=== PATIENT | female | born 1980 | race Caucasian/White ===

== ENCOUNTER 2020-09-26 08:42 | Emergency (ER) | payer OTHER ==
[2020-09-26 08:48] VITALS: BP 122/64; PULSE 59; TEMP 97.8; BMI 27.0
[2020-09-26] MEDS ORDERED: MAG HYDROX/AL HYDROX/SIMETH 30 ML UNIT-DOSE CUP PO ONE (09:40)
[2020-09-26] MEDS ORDERED: ACETAMINOPHEN 500 MG TABLET (FP) PO ONE (09:40)
[2020-09-26] MEDS ORDERED: FAMOTIDINE 20 MG TABLET PO ONE (09:40)
[2020-09-26] MEDS ORDERED: ACETAMINOPHEN 325 MG TABLET (FP) ONE (09:58)
[2020-09-26] MEDS ORDERED: FAMOTIDINE 20 MG TABLET ONE (09:59)
[2020-09-26 10:51] LABS: BASO % 1.3 % (0-2.0); EOS % 8.7 % (0-4.5); HEMATOCRIT 30.7 % (32.4-45.2); LYMPH % 30.2 % (8-40); MCH 24.6 pg (25.7-33.7); MCHC 32.6 g/dl (32.0-36.0); MEAN CELL VOLUME 75.4 fl (80-96); MEAN PLT VOLUME 9.8 fl (7.5-11.1); MONO % 8.5 % (3.8-10.2); NEUT % 51.3 % (42.8-82.8); PLATELET COUNT 229 K/MM3 (134-434); RBC 4.07 M/mm3 (3.60-5.2); RDW 19.1 % (11.6-15.6); WHITE BLOOD COUNT 9.5 K/mm3 (4.0-10.0)
[2020-09-26 10:52] LABS: URINE APPEARANCE CLEAR; URINE BILIRUBIN NEGATIVE (NEGATIVE); URINE COLOR YELLOW; URINE GLUCOSE (UA) NEGATIVE (NEGATIVE); URINE KETONE NEGATIVE (NEGATIVE); URINE LEUK ESTERASE NEGATIVE (NEGATIVE); URINE NITRITE NEGATIVE (NEGATIVE); URINE PROTEIN NEGATIVE (NEGATIVE); URINE UROBILINOGEN 0.2 mg/dL (0.2-1.0)
[2020-09-26 10:55] LABS: HCG,QUALITATIVE URINE Negative
[2020-09-26 10:59] LABS: CALCIUM 9.1 mg/dL (8.5-10.1)
[2020-09-26 11:00] LABS: ALBUMIN 4.1 g/dl (3.4-5.0); BLOOD UREA NITROGEN 10.2 mg/dL (7-18)
[2020-09-26 11:02] LABS: CREATININE 0.5 mg/dL (0.55-1.3)
[2020-09-26 11:04] LABS: BILIRUBIN,TOTAL 0.3 mg/dL (0.2-1); TOT PROT 7.7 g/dl (6.4-8.2)
== END 2020-09-26 11:30 | disposition home or self-care (01) ==
LOC: JER 08:42
DX: R10.13 Epigastric pain (principal)
CPT/HCPCS: 36415; 80053; 81003; 83690; 84703; 85025; 87086; 99283-25

== ENCOUNTER 2021-01-28 10:01 | Emergency (ER) | payer OTHER ==
[2021-01-28 10:06] VITALS: BP 112/64; PULSE 58; TEMP 98.2; BMI 27.4
[2021-01-28] MEDS ORDERED: METHOCARBAMOL 500 MG TABLET PO ONE (10:34)
[2021-01-28] MEDS ORDERED: KETOROLAC TROMETHAMINE 30 MG/1 ML VIAL IM ONE (10:34)
[2021-01-28] MEDS ORDERED: METHOCARBAMOL 500 MG TABLET ONE (10:40)
[2021-01-28] MEDS ORDERED: KETOROLAC TROMETHAMINE 30 MG/1 ML VIAL ONE (10:40)
== END 2021-01-28 11:21 | disposition home or self-care (01) ==
LOC: JER 10:01
PROC: 3E023GC Introduction of Other Therapeutic Substance into Muscle, Percutaneous Approach (ICD-10-PCS; principal; 2021-01-28)
DX: S49.91XA Unspecified injury of right shoulder and upper arm, initial encounter (principal); V49.40XA Driver injured in collision with unspecified motor vehicles in traffic accident, initial encounter
CPT/HCPCS: 73060-TC-RT-FY; 99284-25

== ENCOUNTER 2021-02-20 12:00 | Emergency (ER) | payer OTHER ==
[2021-02-20 12:43] VITALS: BP 131/78; PULSE 60; TEMP 98.6; BMI 26.5
== END 2021-02-20 14:28 | disposition home or self-care (01) ==
LOC: JER 12:00 → JERFT 12:00
DX: J45.21 Mild intermittent asthma with (acute) exacerbation (principal)
CPT/HCPCS: 71046-TC-FY; 99283-25

== ENCOUNTER 2021-05-02 10:03 | Emergency (ER) | payer OTHER ==
[2021-05-02 10:11] VITALS: BP 112/69; PULSE 53; TEMP 97; BMI 26.5
[2021-05-02] MEDS ORDERED: KETOROLAC TROMETHAMINE 60 MG/2 ML VIAL IM ONE (10:34)
[2021-05-02] MEDS ORDERED: LIDOCAINE 5% TOPICAL PATCH TP ONE (10:34)
[2021-05-02] MEDS ORDERED: DEXAMETHASONE LIQUID 0.5 MG/5 ML PO ONE (10:34)
[2021-05-02] MEDS ORDERED: ACETAMINOPHEN 325 MG TABLET (FP) PO ONE (10:34)
[2021-05-02] MEDS ORDERED: diazePAM 5 MG TABLET PO ONE (10:35)
[2021-05-02] MEDS ORDERED: ACETAMINOPHEN 325 MG TABLET (FP) ONE (11:55)
[2021-05-02] MEDS ORDERED: KETOROLAC TROMETHAMINE 30 MG/1 ML VIAL ONE (11:56)
[2021-05-02] MEDS ORDERED: DEXAMETHASONE SOD PHOSPHATE 10 MG/1 ML VIAL ONE (11:56)
[2021-05-02] MEDS ORDERED: diazePAM 5 MG TABLET ONE (11:56)
[2021-05-02] MEDS ORDERED: LIDOCAINE 5% TOPICAL PATCH ONE (11:56)
[2021-05-02] MEDS ORDERED: LIDOCAINE PATCH REMOVAL MC ONE (22:00)
== END 2021-05-02 13:42 | disposition home or self-care (01) ==
LOC: JER 10:03
PROC: 3E023GC Introduction of Other Therapeutic Substance into Muscle, Percutaneous Approach (ICD-10-PCS; principal; 2021-05-02)
DX: M25.511 Pain in right shoulder (principal)
CPT/HCPCS: 99284-25

== ENCOUNTER 2024-04-19 23:42 | Inpatient (IN) | payer OTHER ==
[2024-04-20 00:22] LABS: BASO % 0.9 % (0-2.0); EOS % 3.3 % (0-4.5); HEMATOCRIT 30.3 % (32.4-45.2); HEMOGLOBIN 9.2 GM/dL (10.7-15.3); MCH 23.2 pg (25.7-33.7); MCHC 30.4 g/dl (32.0-36.0); MEAN CELL VOLUME 76.3 fl (80-96); MEAN PLT VOLUME 9.6 fl (7.5-11.1); MONO % 5.7 % (3.8-10.2); NEUT % 74.1 % (42.8-82.8); PLATELET COUNT 237 10^3/uL (134-434); RBC 3.96 M/mm3 (3.60-5.2); WHITE BLOOD COUNT 13.3 K/mm3 (4.0-10.0)
[2024-04-20 00:33] LABS: CHLORIDE 109 mmol/L (98-107); POTASSIUM 3.6 mmol/L (3.5-5.1); SODIUM 143 mmol/L (136-145)
[2024-04-20 00:35] LABS: CALCIUM 9.1 mg/dL (8.5-10.1)
[2024-04-20 00:37] LABS: ALBUMIN 3.8 g/dl (3.4-5.0); ANION GAP 8 mmol/L (4-13); BLOOD UREA NITROGEN 10.9 mg/dL (7-18); CO2 26 mmol/L (21-32); GLUCOSE,RANDOM 95 mg/dL (74-106)
[2024-04-20 00:40] LABS: CREATININE 0.7 mg/dL (0.55-1.3); SGOT/AST 14 U/L (15-37); SGPT/ALT 14 U/L (13-61)
[2024-04-20 00:41] LABS: BILIRUBIN,TOTAL 0.1 mg/dL (0.2-1); TOT PROT 7.1 g/dl (6.4-8.2)
[2024-04-20 00:42] LABS: ALK PHOS 66 U/L (45-117)
[2024-04-20 01:53] LABS: INR 1.11 (0.83-1.09); PROTHROMBIN TIME (PATIENT) 12.5 SEC (9.7-13.0)
[2024-04-20] MEDS ORDERED: ATROPINE SULFATE 1 MG/10 ML DISP.SYRIN ONE (06:48)
[2024-04-20] MEDS: ATROPINE SULFATE 1 MG/10 ML DISP.SYRIN IVPUSH ONE (06:54)
[2024-04-20 10:57] VITALS: BMI 25.9
[2024-04-20] MEDS: LACTATED RINGERS SOLUTION 1,000 ML/1,000 ML INFUS.BAG IV ONE (12:01)
[2024-04-20 19:06] LABS: COCAINE, UR NEGATIVE (NEGATIVE); METHADONE, UR NEGATIVE (NEGATIVE); OPIATES, URI NEGATIVE (NEGATIVE); PHENCYCLIDINE,URINE NEGATIVE (NEGATIVE); URINE AMPHETAMINES NEGATIVE (NEGATIVE); URINE BARBITURATES NEGATIVE (NEGATIVE); URINE BENZODIAZEPINES NEGATIVE (NEGATIVE)
[2024-04-21 07:00] LABS: BASO % 0.7 % (0-2.0); EOS % 5.9 % (0-4.5); HEMATOCRIT 28.7 % (32.4-45.2); MCH 23.6 pg (25.7-33.7); MCHC 31.2 g/dl (32.0-36.0); MEAN CELL VOLUME 75.6 fl (80-96); MEAN PLT VOLUME 9.3 fl (7.5-11.1); MONO % 8.6 % (3.8-10.2); NEUT % 37.8 % (42.8-82.8); PLATELET COUNT 234 10^3/uL (134-434); RBC 3.79 M/mm3 (3.60-5.2); RDW 18.9 % (11.6-15.6); WHITE BLOOD COUNT 6.7 K/mm3 (4.0-10.0)
[2024-04-21 07:21] LABS: POTASSIUM 3.9 mmol/L (3.5-5.1)
[2024-04-21 07:24] LABS: CALCIUM 8.5 mg/dL (8.5-10.1)
[2024-04-21 07:25] LABS: ALBUMIN 3.4 g/dl (3.4-5.0); BLOOD UREA NITROGEN 10.7 mg/dL (7-18)
[2024-04-21 07:28] LABS: CREATININE 0.6 mg/dL (0.55-1.3)
[2024-04-21 07:29] LABS: BILIRUBIN,TOTAL 0.2 mg/dL (0.2-1); TOT PROT 6.6 g/dl (6.4-8.2)
[2024-04-22 07:09] LABS: BASO % 0.8 % (0-2.0); EOS % 6.2 % (0-4.5); HEMATOCRIT 31.6 % (32.4-45.2); HEMOGLOBIN 9.8 GM/dL (10.7-15.3); LYMPH % 34.1 % (8-40); MCH 23.5 pg (25.7-33.7); MCHC 31.1 g/dl (32.0-36.0); MEAN CELL VOLUME 75.6 fl (80-96); MEAN PLT VOLUME 9.5 fl (7.5-11.1); MONO % 8.5 % (3.8-10.2); NEUT % 50.4 % (42.8-82.8); PLATELET COUNT 253 10^3/uL (134-434); RBC 4.19 M/mm3 (3.60-5.2); RDW 19.1 % (11.6-15.6); WHITE BLOOD COUNT 7.9 K/mm3 (4.0-10.0)
[2024-04-22 07:28] LABS: POTASSIUM 4.2 mmol/L (3.5-5.1)
[2024-04-22 07:34] LABS: ALBUMIN 3.8 g/dl (3.4-5.0); BLOOD UREA NITROGEN 11.5 mg/dL (7-18); CALCIUM 9.5 mg/dL (8.5-10.1)
[2024-04-22 07:38] LABS: BILIRUBIN,TOTAL 0.3 mg/dL (0.2-1); CREATININE 0.6 mg/dL (0.55-1.3); TOT PROT 7.2 g/dl (6.4-8.2)
[2024-04-22 20:06] VITALS: BP 113/61; PULSE 74; RESP 20; TEMP 97.6
== END 2024-04-22 20:42 | disposition short-term general hospital (02) | DRG 201 ==
LOC: JER 23:42 → JERBED 04-20 05:34 → J2W 04-20 10:37
PROVIDERS: ADMIT Internal Medicine; ATTEND Internal Medicine
DX: I49.5 Sick sinus syndrome (principal); R55 Syncope and collapse; J45.909 Unspecified asthma, uncomplicated; D50.9 Iron deficiency anemia, unspecified; R00.2 Palpitations
CPT/HCPCS: 0241U-QW; 36415; 70450-TC; 71045-TC-FY; 80053; 80307; 82550; 83735; 84439; 84443; 84479; 84484; 84703; 85025; 85610; 87481; 93005; 93010; 93306-TC; 99285-25

== ENCOUNTER 2024-10-04 03:40 | Emergency (ER) | payer OTHER ==
[2024-10-04 03:46] VITALS: BP 114/79; PULSE 62; RESP 17; TEMP 97.6; BMI 26.3
[2024-10-04] MEDS ORDERED: DIVALPROEX SODIUM 500 MG TABLET E.C. ONE (04:40)
[2024-10-04] MEDS: DIVALPROEX SODIUM 500 MG TABLET E.C. PO ONE (04:41)
[2024-10-04] MEDS: DIVALPROEX NA *ER* EXTEND REL 500 MG TABLET.SA (FP) PO ONE (04:41)
== END 2024-10-04 04:46 | disposition home or self-care (01) ==
LOC: JER 03:40
DX: G40.909 Epilepsy, unspecified, not intractable, without status epilepticus (principal)
CPT/HCPCS: 99283-25